=== PATIENT | male | born 1980 | race Caucasian/White ===

== ENCOUNTER 2019-07-06 17:00 | Emergency (ER) | payer OTHER ==
[~2019-07-06] VITALS: Ht 185 cm; Wt 92.0 kg
[~2019-07-06 17:00] MED LIST: BSP10T PO; CARI350T PO; CEPH500C PO; CYCL10TA9 PO; HCA25SU PR; HYDR-2890 PO; LORA2TAB PO; OMEP40CA36 PO; SULF1TAB7 PO
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
[2019-07-06] MEDS ORDERED: CYCL10TA9 PO (18:20)
[2019-07-06] MEDS ORDERED: RX-CYCLOBENZAPRINE 10 MG (FLEXERIL) TAB PPK#3 PO STA (18:21)
[2019-07-06] MEDS ORDERED: MELO15TA14 PO (18:21)
[2019-07-06] MEDS ORDERED: RX-CYCLOBENZAPRINE 10 MG (FLEXERIL) TAB PPK#3 PO ONE (18:21)
[2019-07-06] MEDS ORDERED: RX-NAPROXEN (NAPROSYN) 250 MG TAB PPK#4 PO STA (18:21)
[2019-07-06] MEDS ORDERED: RX-NAPROXEN (NAPROSYN) 250 MG TAB PPK#4 PO ONE (18:21)
[2019-07-06 18:26] VITALS: BP 142/88
== END 2019-07-06 18:29 | disposition home or self-care (01) ==
LOC: EDUNIT# 17:00 → ER 17:01
DX: S16.1XXA Strain of muscle, fascia and tendon at neck level, initial encounter (principal); B19.20 Unspecified viral hepatitis C without hepatic coma; R40.2142 Coma scale, eyes open, spontaneous, at arrival to emergency department; R40.2252 Coma scale, best verbal response, oriented, at arrival to emergency department; R40.2362 Coma scale, best motor response, obeys commands, at arrival to emergency department; F17.210 Nicotine dependence, cigarettes, uncomplicated; Z90.81 Acquired absence of spleen; Z79.52 Long term (current) use of systemic steroids; V49.40XA Driver injured in collision with unspecified motor vehicles in traffic accident, initial encounter
CPT/HCPCS: 70450; 72125